=== PATIENT | female | born 1995 | race Two or more races ===

== ENCOUNTER 2025-04-16 15:15 | Emergency (ER) | payer MEDICAID ==
[~2025-04-16] VITALS: Ht 165.1 cm; Wt 65.8 kg
[2025-04-16 17:37] LABS: PLATELET COUNT (AUTO) 353 K/uL (150-450); RED BLOOD CELL COUNT(AUTO) 4.79 MIL/uL (4.0-5.2); RED CELL DISTRIBUTION WIDTH 13.0 % (11.5-15.0); WHITE BLOOD COUNT (AUTO) 10.3 K/uL (4.3-11.0)
[2025-04-16 17:41] LABS: CALCIUM, SERUM 9.0 mg/dL (8.5-10.1); CREATININE 0.8 mg/dL (0.6-1.3); SODIUM SERUM 138.0 mmol/L (136-145); UREA NITROGEN, BLOOD 16.0 mg/dL (7-18)
[2025-04-16] MEDS ORDERED: METOCLOPRAMIDE HCL 10 MG/2 ML VIAL ONE (18:09)
[2025-04-16] MEDS: IV NS 0.9% 1,000 ML BAG IV ONE (18:25)
[2025-04-16] MEDS: METOCLOPRAMIDE HCL 10 MG/2 ML VIAL IV ONE (18:26)
[2025-04-16] MEDS ORDERED: IBUP-1490 PO (21:12)
[2025-04-16 21:41] VITALS: BP 110/66; TEMP 98.3; O2SAT 99
== END 2025-04-16 21:41 | disposition home or self-care (01) ==
LOC: ER 15:21
DX: R51.9 Headache, unspecified (principal); H53.8 Other visual disturbances; R42 Dizziness and giddiness; J45.909 Unspecified asthma, uncomplicated
CPT/HCPCS: 99285; 96374; 70450; 96361; 96375; 93005; 85025; 80048; 36415; 84484; J1200; J2765; J7030